=== PATIENT | female | born 1960 | race African-American/Black ===

== ENCOUNTER 2020-08-10 10:36 | Emergency (ER) | payer OTHER ==
[~2020-08-10] VITALS: Ht 157.5 cm; Wt 72.6 kg
[2020-08-10] MEDS ORDERED: NAPROSYN500 MG PO (11:39)
[2020-08-10] MEDS ORDERED: ZANAFLEX4 MG PO (11:39)
[2020-08-10 12:05] VITALS: BP 155/74
== END 2020-08-10 12:05 | disposition home or self-care (01) ==
LOC: ER 10:36
DX: S23.9XXA Sprain of unspecified parts of thorax, initial encounter (principal); S29.012A Strain of muscle and tendon of back wall of thorax, initial encounter; S46.911A Strain of unspecified muscle, fascia and tendon at shoulder and upper arm level, right arm, initial encounter; I10 Essential (primary) hypertension; Z88.0 Allergy status to penicillin; X50.9XXA Other and unspecified overexertion or strenuous movements or postures, initial encounter; Y93.01 Activity, walking, marching and hiking; Y92.828 Other wilderness area as the place of occurrence of the external cause; Y99.8 Other external cause status